=== PATIENT | female | born 1965 | race Caucasian/White ===

== ENCOUNTER → 2018-01-06 | Day surgery (SDC) | payer BC ==
[~2018-01-06] MED LIST: ACETAMINOPHEN 1000 MG/100 ML IV ONE; BUPIVACAINE HCL 0.5% INJ 30 ML VIAL INJ ONE; BUPIVACAINE LIPOSOME/PF 266 MG/20 ML IJ ONE; CEFAZOLIN SOD 2 GM/D5W 50ML 50 ML IV ONE; DEXAMETHASONE SOD PHOS INJ 4 MG/ML VIAL ONE; EPHEDRINE SULFATE INJ 50 MG/10 ML SYR ONE; FENTANYL CITRATE/PF 100MCG/2 ML INJ ONE; KETOROLAC TROMETHAMINE 30 MG/ML VIAL ONE; LIDOCAINE HCL 2% LOCAL INJ 5 ML SDV VIAL INJ ONE; MIDAZOLAM HCL 2 MG/2 ML VIAL ONE; MUPIROCIN 2% OINT 22 GM TUBE ONE; ONDANSETRON HCL INJ 2 MG/ML VIAL ONE; PROPOFOL IV EMULSION 10 MG/ML 20 ML VIAL ONE; SEVOFLURANE INHAL SOLN 250 ML PEN BTL ONE
--- NOTE | 2018-01-06 13:20 | Operative Report ---
DATE OF PROCEDURE: January 06, 2018 REMOTELY OPERATED VEHICLE: None. PREOPERATIVE DIAGNOSES 1. Hallux rigidus, stage II, right foot. 2. Painful tailor's bunion, right foot. POSTOPERATIVE DIAGNOSES 1. Hallux rigidus, stage II, right foot. 2. Painful tailor's bunion, right foot. PROCEDURES 1. First metatarsophalangeal joint fusion, right foot. 2. Tailor's bunionectomy, right foot. 3. Use of human allograft to promote healing at the arthrodesis site and to prevent scar. 4. Application of posterior splint. COMPLICATIONS: None. CONDITION: Stable. MATERIALS: [place] MTP plate, right; 3.0 x 12 locking screw times 2; 3.0 x 16 locking screw, 2 screws; 3.0 x 16 nonlocking 1 screw; AlloWrap 4 x 4, lot number [id number], expiration 13 February 2019. PROCEDURE IN DETAIL: Under mild sedation, the patient was brought to the operating room and placed on the operating room table in the supine position. Following IV sedation, anesthesia was obtained with a general anesthetic. At this point, the right foot was scrubbed, prepped and draped in the usual aseptic manner. The tourniquet was inflated to 350 mmHg, and the leg was lowered to the table. It is to be noted that 30 mL of an ankle block were given before prepping and bringing the ankle tourniquet up. Half of it was 0.5 Marcaine plain and the other 5 was long-acting Xarelto. First MPJ fusion: Attention was then directed to the dorsal aspect of the right foot where a linear incision was made overlying the 1st metatarsophalangeal joint. The incision was deepened via sharp and blunt dissection, taking care to retract or cauterize neurovascular structures as necessary. It was deepened down to the level of the capsule. Then a capsulotomy was then performed. At this point, the joint was then visualized. There was noted to be a large amount of hypertrophic synovial tissue. There were also some osteophytes floating in the joint. All nonviable tissue was removed with excisional debridement with a #15 blade. An oscillating saw was then used to remove the exostosis dorsally, medially and laterally. At this point, the joint was then prepped for arthrodesis. A cone and reamer were then used in order to prep the joint down to clean, viable, bleeding bone. At this point, under the use of intraop fluoroscopy, 1 lag screw was used, 3.0, to promote compression and arthrodesis of the 1st MPJ. An [place] MTP plate was used along with 4 other screws. There was noted adequate compression clinically and with the use of intraop fluoroscopy along with adequate alignment. The area was then flushed with copious amounts of normal sterile saline solution. Attention was then directed to the lateral aspect of the 5th, where a linear incision was made overlying the metatarsophalangeal joint. The incision was deepened down to the level of the capsule. A linear capsulotomy was then performed. At this point, it was noted that the 5th had a previous osteotomy to that area. Because of the previous osteotomy, a regular tailor's bunionectomy was then performed. There was not enough metatarsal head to perform an osteotomy. All hypertrophic area was removed, and the area was made smooth. The area was then flushed with copious amounts of normal sterile saline solution. On the tailor's bunion, a K-wire was used in order to promote healing in a more anatomical position. There was noted to be adequate alignment clinically and with the use of intraop fluoroscopy. At this point, allograft was used at the area of the arthrodesis site and also at the area of the nerve to promote healing to prevent adhesions to the area. All areas were closed, closing the deepest layer with 3-0 Vicryl, 4-0 Vicryl, and 4-0 nylon. A clean dressing was applied consisting of Adaptic, 4 x 4's, Kerlix and Webril. A posterior splint was secured utilizing [place] bandage. The tourniquet was deflated, and there was noted to be hyperemic response to all the digits. The patient tolerated the procedure and the anesthesia well without complications. She was transported to the recovery room with vital signs stable and vascular status intact to both feet. The patient will be discharged home when she meets criteria. She was given instructions to be strictly nonweightbearing, to ice and elevate the foot while at rest, to follow up with me in the office and to call the office if any questions, concerns or any problems arise. Job#: [id number]
== END | disposition home or self-care (01) ==
LOC: OR 07:29
PROVIDERS: ATTEND Podiatrist Foot & Ankle Surgery
DX: M20.21 Hallux rigidus, right foot (principal); M21.6X1 Other acquired deformities of right foot; Z72.0 Tobacco use; R00.1 Bradycardia, unspecified; Z01.810 Encounter for preprocedural cardiovascular examination
CPT/HCPCS: 28110; 28750; 76001; 93005; C9290; J1100; J1885; J2001; J2250; J2405